=== PATIENT | male | born 1950 | race Caucasian/White ===

== ENCOUNTER 2017-04-10 07:39 | Day surgery (SDC) | payer OTHER ==
[2017-04-10 08:01] VITALS: BMI 25.7
[2017-04-10 08:11] LABS: #Basophils 0.1 thou/uL (0.0-0.2); #Eosinphils 0.1 thou/uL (0.0-0.7); #Lymphocytes 1.7 thou/uL (1.20-3.40); #Monocytes 0.6 thou/uL (0.11-0.59); #Neutrophils 8.2 thou/uL (1.40-6.50); %Basophils 0.7 % (0.0-1.0); %Eosinophils 0.7 % (0.0-10.0); %Lymphocytes 15.8 % (21.0-51.0); %Monocytes 5.8 % (0.0-10.0); Hematocrit 47.7 % (42.0-52.0); Mean Platelet Volume 6.9 fL (7.4-10.4); Red Blood Cell (RBC) Count 5.02 mill/uL (4.70-6.10); White Blood Cell (WBC) Count 10.6 thou/uL (4.8-10.8)
[2017-04-10] MEDS ORDERED: FLU VACC QS2017-18 36 mo. & older 0.5 ML SYRINGE IM ONE (09:00)
[2017-04-10] MEDS ORDERED: Sodium Bicarbonate 2.4 MEQ/5 ML ONE (09:11)
[2017-04-10 12:14] VITALS: BP 157/77; TEMP 97.7
--- NOTE | 2017-04-10 14:12 | CT ---
CT GUIDED LUMBAR ASPIRATION: History: 66-year-old male with retrothecal fluid collection within laminectomy defect at L4 and L4-5. Technique: Signed informed consent obtained. Patient was placed prone on CT table. Skin over the lower back was prepped and draped in the usual sterile fashion. 25 gauge needle was used to apply buffered Lidocai ne superficially. Utilizing CT guidance, first a 22 gauge spinal needle was incrementally advanced i nto the region of the laminectomy defect at the L4 level. With distal tip positioned very close to t he dorsal surface of the thecal sac, the stylet was removed, and aspiration was attempted. There was no return of any fluid, either blood, pus, or CSF. The patient reported mild pain, and therefore, a dditional Lidocaine was injected into the 22 gauge spinal needle while it was withdrawn through the retrospinal soft tissues. Next, an 18 gauge spinal needle was incrementally advanced at a slightly m ore inferior position at L4, with distal tip abutting the dorsal surface of the thecal sac but not p enetrating the thecal sac. After removal of stylet, aspiration with a 10 ml syringe yielded a tiny a mount of viscous, bloody, particulate material (blood clots), less than 1 ml. This was sent to [facility] for culture and sensitivity. There was no CSF return. Patient experienced bilateral lower ext remity hypesthesia, apparently due to epidural infiltration of a small amount of the Lidocaine, whic h subsequently resolved while the patient was in the post procedure holding room. Otherwise, there w as no major complication, and the patient tolerated the procedure well. IMPRESSION: Less than 1 ml of highly viscous red material (blood clots) aspirated through 18 gauge spinal needle from the tiny fluid collection at the laminectomy defect abutting the dorsal surface of the thecal sac. This was sent to laboratory for culture and sensitivity. POS: [facility]
== END 2017-04-10 11:30 | disposition home or self-care (01) ==
LOC: CT 07:39
PROVIDERS: ATTEND Neurological Surgery
PROC: 00JV3ZZ Inspection of Spinal Cord, Percutaneous Approach (ICD-10-PCS; principal; 2017-04-10)
DX: G06.1 Intraspinal abscess and granuloma (principal); Z88.6 Allergy status to analgesic agent; Z88.1 Allergy status to other antibiotic agents; Z88.8 Allergy status to other drugs, medicaments and biological substances
CPT/HCPCS: 36415; 77002; 77012; 85025; 85652; 87070; 87205; 90471; 90682; G0008; Q2036

== ENCOUNTER 2017-05-11 08:56 | Inpatient (IN) | payer OTHER ==
[2017-05-10 13:07] VITALS: BMI 26.4
--- NOTE | 2017-05-11 05:54 | HP ---
CHIEF COMPLAINT: Paresthesias in the perineum. HISTORY OF PRESENT ILLNESS: He has an MRI from [facility]. 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 He had good recovery from surger y and was doing well until about 10 days ago fell about a month ago when he started getting paresthes ias in the perineum. He has had no fever, chills, sweats, rigors. There are no radicular pains in t he leg. There is no incontinence. No weakness or loss of sensation. There is feeling in the sacral dermatomes, but also tingling. He has an MRI to review. Mr. Randolph had a previous L3-L5 laminectomy and L4-L5 TLIF in 07/2016 REVIEW OF SYSTEMS: Ten-point review of systems was negative, unless otherwise mentioned in the above HPI. PAST MEDICAL HISTORY: Spinal stenosis, varicosis veins, CAD, RCA stent, ventral hernia, right inguin al hernia, cataracts. MEDICATIONS: Tizanidine HCL, diclofenac, Nexium and loratadine. ALLERGIES: Seasonal, MOTRIN. PHYSICAL EXAMINATION: HEENT: Normocephalic, atraumatic. Hearing intact. Moist mucous membranes. Trachea is midline. No masses noted. RESPIRATIONS: The patient has bilateral symmetric chest rise. Appears to be no shortness breath. CARDIOVASCULAR: Regular rate and rhythm, normal S1, S2 heart sounds, no distal cyanosis or clubbing. PSYCHIATRIC: Normal mood and affect. NEUROLOGIC: Cranial nerves II-XII grossly intact. Speech is fluent, answers my questions appropriat samia. Gait and station are normal. Motor exam: There is normal strength in biceps, triceps, and wri st extensors, finger extensors, and interossei. Sensory exam, paresthesias in S2, S3, and S4. No fo des loss of sensation. Culture no growth at 5 days. ASSESSMENT: Low back pain, lumbar spinal stenosis, intraspinal abscess and granuloma. PLAN: Dr. Lino has offered Mr. Randolph a reopening of lumbar incision, I and D culture and possib le dural repair. We discussed the risks, benefits, and possible complications of surgery. The patie nt is fully aware of the risks and is willing to proceed with the surgery.
[2017-05-11] MEDS ORDERED: CEFAZOLIN/Water 2 GM/20 ML SYRINGE ONE (10:47)
[2017-05-11 11:05] LABS: Hematocrit 42.4 % (42.0-52.0); Red Blood Cell (RBC) Count 4.55 mill/uL (4.70-6.10); White Blood Cell (WBC) Count 6.4 thou/uL (4.8-10.8)
[2017-05-11 11:10] LABS: Prothrombin Time 13.2 SEC (12.0-14.7)
[2017-05-11 11:11] LABS: PTT 25.7 SEC (22.9-36.1)
[2017-05-11 11:16] LABS: Anion Gap 11 mmol/L (10-20); BUN (Urea Nitrogen) 13 mg/dL (8.4-25.7); Calc. Creatinine Clearance 105 mL/min (70-130); Calcium 9.4 mg/dL (7.8-10.44); Carbon Dioxide 27 mmol/L (23-31); Chloride 106 mmol/L (98-107); Estimated GFR-MDRD 88
[2017-05-11] MEDS ORDERED: Fentanyl 250 MCG/5 ML VIAL ONE (11:37)
[2017-05-11] MEDS ORDERED: Midazolam HCl 2 mg/2 ml Vial ONE (11:37)
[2017-05-11] MEDS ORDERED: Sodium Chloride 0.9% 20 ML ONE (11:41)
[2017-05-11] MEDS ORDERED: Thrombin 5000 UNITS/5 ML VIAL ONE (11:41)
[2017-05-11] MEDS ORDERED: Bupivacaine/Epinephrine 0.25% 30 ML VIAL ONE (11:41)
[2017-05-11] MEDS ORDERED: Lidocaine 1% PF 5 ML VIAL ONE (12:01)
[2017-05-11] MEDS ORDERED: ePHEDrine/0.9% NaCl/PF SYRINGE 50 mg/10 ml ONE (12:01)
[2017-05-11] MEDS ORDERED: Ondansetron HCl/PF 4 MG/2 ML Vial ONE (12:01)
[2017-05-11] MEDS ORDERED: Propofol 200 MG/20 ML VIAL ONE (12:01)
[2017-05-11] MEDS ORDERED: Dexamethasone 20 MG/5 ML VIAL ONE (12:01)
[2017-05-11] MEDS ORDERED: Fentanyl 100 MCG/2 ML VIAL ONE ×5 (13:24→17:59)
[2017-05-11] MEDS ORDERED: Meperidine HCl/PF 25 MG/ML VIAL SLOW IVP PRN (16:19)
[2017-05-11] MEDS ORDERED: Promethazine HCl 25 MG/ML VIAL SLOW IVP PRN (16:19)
[2017-05-11] MEDS ORDERED: HYDROmorphone 2 MG/ML VIAL SLOW IVP PRN (16:19)
[2017-05-11] MEDS ORDERED: Morphine Sulfate 2 MG/ML SYRINGE SLOW IVP PRN (16:19)
[2017-05-11] MEDS ORDERED: Morphine PF 1 MG/ML SYR IVP PRN (16:38)
[2017-05-11] MEDS ORDERED: Bisacodyl 10 MG SUPP PR PRN (16:38)
[2017-05-11] MEDS ORDERED: Morphine 4 MG/ML VIAL SLOW IVP PRN (16:38)
[2017-05-11] MEDS ORDERED: Acetaminophen/Codeine 30-300mg Tablet PO PRN (16:38)
[2017-05-11] MEDS ORDERED: Ondansetron HCl/PF 4 MG/2 ML Vial IVP PRN (16:38)
[2017-05-11] MEDS ORDERED: traMADol HCl 50 MG TAB PO PRN ×2 (16:38)
[2017-05-11] MEDS ORDERED: tiZANidine HCl 4 MG TAB PO PRN (16:38)
[2017-05-11] MEDS ORDERED: Docusate 100 MG CAP PO PRN (16:43)
[2017-05-11] MEDS ORDERED: Promethazine HCl 25 MG/ML VIAL ONE (16:54)
[2017-05-11] MEDS ORDERED: tiZANidine HCl 4 MG TAB ONE (17:54)
--- NOTE | 2017-05-11 18:33 | OP ---
DATE OF SURGERY: 05/11/2017 SURGEON: Carolina Lino M.D. FLANGING MACHINE OPERATOR: Pa Sal PA-C. PREOPERATIVE INDICATION: Prevent neurological deterioration. PREOPERATIVE DIAGNOSES: Prior lumbar decompression and fusion, epidural fluid collection, and sacral dermatomal paresthesias. POSTOPERATIVE DIAGNOSES: Prior lumbar decompression and fusion, epidural fluid collection, left L3 p ars fracture, erosion of dura, pseudomeningocele, and spinal instability. OPERATIVE PROCEDURE: Reopening lumbar incision, exploration of fusion, discovery of pars fracture, d iscovery of pseudomeningocele, repair of pseudomeningocele, microsurgery, extension of fusion, arthro desis L3-L4, posterolateral arthrodesis L3-L4, pedicle screw and hernesto instrumentation L3-L5. PREOPERATIVE MEDICATION: Ancef 2 grams IV. DRAIN NUMBER: Zero. DRAIN TYPE: None. OPERATIVE DICTATION: The patient was brought to the operating room. General endotracheal anesthesia was induced. The patient was positioned prone on the operating table with his chest and hips suppor lei by gel-filled chest rolls. A lateral fluoro radiograph confirmed that the previous incision woul d give us appropriate access to the lumbosacral spine fluid collection. The lumbar skin was sterilel y prepped and draped. We opened with a 10 blade knife and controlled bleeding with bipolar cautery. We used monopolar cautery to dissect through scar tissue to the thoracodorsal fascia. We incised th e fascia in the midline and reflected the paraspinal muscles off the spinous process of L2 above and L5 below. We reflected the paraspinal muscles out of the surgical cord or over to the facet joints a t L3-L4 and L4-L5 and placed self-retaining retractors. We identified the pedicle screw and hernesto comp vamsi at the L3-4, L4-5 facet joints. In the L3-4 facet joint on the right side, there was CSF egress. Scar tissue was left on the back of the dura until we brought the operating microscope into the [facility]. Under microscopic magnification using microsurgical techniques, we carefully peeled the scar tissue a way from the lateral confines of the spinal canal. We removed the remainder of the L3 lamina and we discovered a pars fracture on the left at L3. This was not predicted. The distal part of the facet complex below the pars fracture had moved medially and was surrounded by granulation tissue and stuck to the dura, any manipulation of that bony material resulted in CSF egress. We carefully and circum ferentially dissected dura around the lateral aspect of the previous decompression all the way down t o L5 and back up under the broken facet joint on the left side. Finally, we removed a fragment of rosamaria ne and there was a small ulceration in the dura through which nerve roots were visible and there was CSF egress. Two separate cstuwy-ud-zmklj sutures were placed with 6-0 Prolene under the operating mi croscope. This occluded the opening and a Valsalva maneuver did not produce any CSF flow. We turned our attention to fixation of the fracture. Indeed, there was a very easy lateral translation of L3 relative to L4. There was a very easy posterior translation of L3-L4. We felt that the pars fractur e was unstable and likely to lead to future neurological decline. We elected to fix it. We carefull y dissected in the lateral recess to identify the intervertebral space at L3-L4 for the potential tra nsforaminal interbody device because of the inflammation produced by the CSF egress from the previous surgery. Dura and scar tissue were densely adherent and there was no mobilizing thecal sac medially . We elected to place pedicle screws at L3 and not place an interbody device. The operating microsc ope was taken out of the field. Using bony anatomic landmarks, palpation of the medial portion of the pedicles and lateral fluoro rad iograph as a guide, we chose entry points for pedicle screws at L3. We advanced our entry point thro ugh the pedicles into the vertebral bodies with the bone awl. We tapped the trajectories and probed them and found them completely encased in bone. We placed 6.5 x 55 mm screws bilaterally at L3. AP and lateral fluoro radiographs confirmed the adequate position of the new instrumentation. We then t urned our attention to the removal of the prior rods. Using a xazigz-hwgzizf-quzgqe mechanism, we op ened caps at L4 and L5 removed rods bilaterally. We brought new rods into the field and bent them to encompass the new pedicle screw heads. We placed rods in position and tightened new caps over the r ods. Using djpvas-fznpfjt-weyuhe mechanism, we ensured adequate tightness. We irrigated copiously w ith bacitracin irrigation. We then decorticated the transverse processes of L3 and L4 and the fusion mass bilaterally. We left demineralized bone matrix and morselized autograft in the posterolateral recesses as our fusion substrate. The morselized autograft was obtained from our new laminectomy bon e and facetectomy bone that was carefully cleaned of its soft tissue attachments, morselized, then ad ded to the demineralized bone matrix as our fusion substrate. We irrigated the center of the wound o nce again with bacitracin irrigation. We applied a Valsalva maneuver and still saw no CSF egress fro m our dural repair. We reinforced our repair with DuraSeal tissue sealant. We placed vancomycin pow yasmine in the wound and we closed the wound in anatomic layers. We applied a sterile dressing. This wa s a clean case and no contamination.
[2017-05-11] MEDS: Sodium Chloride 0.9% 1,000 ML IV SCH ×2 (19:20→22:40)
[2017-05-11] MEDS: CEFAZOLIN/Water 2 GM/20 ML SYRINGE SLOW IVP SCH (19:20)
[2017-05-11] MEDS ORDERED: tiZANidine HCl 4 MG TAB PO SCH (21:00)
[2017-05-12] MEDS: Acetaminophen/Codeine 30-300mg Tablet PO PRN ×3 (01:01→08:21)
[2017-05-12] MEDS: CEFAZOLIN/Water 2 GM/20 ML SYRINGE SLOW IVP SCH (03:58)
[2017-05-12 08:51] VITALS: BP 109/62; TEMP 98.2
[2017-05-12] MEDS ORDERED: Loratadine 10 MG TAB PO SCH (09:00)
--- NOTE | 2017-05-12 10:04 | EKG ---
Test Reason : PREOP Blood Pressure : / mmHG Vent. Rate : 064 BPM Atrial Rate : 064 BPM P-R Int : 162 ms QRS Dur : 088 ms QT Int : 404 ms P-R-T Axes : 068 029 052 degrees QTc Int : 416 ms Normal sinus rhythm Normal ECG When compared with ECG of 24-JUL-2016 06:33, No significant change was found Confirmed by EDGARDO BANDA, SBrian ([id number]) on 05/12/2017 10:03:37 AM Referred By: ESTHER Confirmed By:DR. J Luis REYNOSO MD
== END 2017-05-12 11:05 | disposition home or self-care (01) | DRG 29 ==
LOC: SURG A 09:53
PROVIDERS: ADMIT Neurological Surgery; ATTEND Neurological Surgery
PROC: 0SG00AJ Fusion of Lumbar Vertebral Joint with Interbody Fusion Device, Posterior Approach, Anterior Column, Open Approach (ICD-10-PCS; principal; 2017-05-11)
PROC: 00QT0ZZ Repair Spinal Meninges, Open Approach (ICD-10-PCS; 2017-05-11)
DX: G06.1 Intraspinal abscess and granuloma (principal); S32.039A Unspecified fracture of third lumbar vertebra, initial encounter for closed fracture; G96.19 Other disorders of meninges, not elsewhere classified; I25.10 Atherosclerotic heart disease of native coronary artery without angina pectoris; M48.061 Spinal stenosis, lumbar region without neurogenic claudication; Z95.5 Presence of coronary angioplasty implant and graft; Z98.1 Arthrodesis status; W19.XXXA Unspecified fall, initial encounter
CPT/HCPCS: 76001; 80048; 85027; 85610; 85730; 87070; 87077; 87102; 87205; 87206; 93005; 93010; A4216; C1713; C1768; G8978-GP-CI; G8979-GP-CH; J1100; J2001; J2250; J2274; J2405; J2550; J2704; J3010; J3370; J3490

== ENCOUNTER 2017-06-26 11:29 | Outpatient (CLI) | payer OTHER | END 2017-06-26 11:30 | disposition home or self-care (01) | LOC: BICRAD 11:29 | PROVIDERS: ATTEND Neurological Surgery | DX: M54.5 Low back pain (principal); M41.86 Other forms of scoliosis, lumbar region; Z98.890 Other specified postprocedural states | CPT/HCPCS: 72100 ==

== ENCOUNTER 2019-02-20 05:57 | Day surgery (SDC) | payer MEDICARE, OTHER ==
--- NOTE | 2019-02-19 18:55 | HP ---
HISTORY OF PRESENT ILLNESS: Mr. Randolph is a 68-year-old male. He is back in the clinic. Two and a half years ago, he had a decompression with fusion L3 through L5. In April of 2017, we took him back 8 months later for a dural repair, requiring a patch. 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 Over the last 3 months, he has noticed right greater than left L3 radicular pain. This prevents him from helping his with work around the home. He has gone back to doing his exercises, taking anti-inflammatories and modified his work load. He has had no relief. PAST MEDICAL HISTORY: Spinal stenosis, varicose veins, CAD with RCA stent, ventral hernia, right inguinal hernia, cataracts. ALLERGIES: SEASONAL, AND MOTRIN. MEDICATIONS: Tizanidine, diclofenac, Nexium, loratadine. PAST SURGICAL HISTORY: Right inguinal hernia repair, ventral hernia repair, CAD with RCA stent, cataracts, lumbar laminectomy and fusion, lumbar washout, dural repair. FAMILY HISTORY: Father is . Mother is . SOCIAL HISTORY: The patient is a former smoker. PHYSICAL EXAMINATION: CONSTITUTIONAL: Alert, oriented. NEUROLOGIC: Gait and station, leans a bit. Motor exam, mild weakness in the right greater the left iliopsoas. Normal quad strength distally. Sensory exam, some l3 affected, right greater than left. RESPIRATION: Normal work of breathing on room air. Symmetric chest rise. IMAGING: MRI, herniated nucleus pulposus post fusion at L2-L3, both lateral recesses are affected. Stenosis is severe. The right L3 foramen looks tight as well. ASSESSMENT AND PLAN: Lumbar spinal stenosis with radiculopathy. Dr. Lino has offered surgery. The patient states he understands the risks of surgery and is willing to proceed. Job ID: [id number]
[2019-02-20 06:29] LABS: #Basophils 0.1 thou/uL (0.0-0.2); #Eosinphils 0.8 thou/uL (0.0-0.7); #Lymphocytes 2.5 thou/uL (1.20-3.40); #Monocytes 0.8 thou/uL (0.11-0.59); #Neutrophils 3.1 thou/uL (1.40-6.50); %Basophils 1.2 % (0.0-1.0); %Eosinophils 11.5 % (0.0-10.0); %Lymphocytes 34.1 % (21.0-51.0); %Monocytes 11.1 % (0.0-10.0); %Neutrophils 42.1 % (42.0-75.0); Hemoglobin 13.8 g/dL (14.0-18.0); Mean Corpuscular HGB CONC 34.2 g/dL (32.0-36.0); Mean Corpuscular Hemoglobin 30.8 pg (27.0-31.0); Mean Corpuscular Volume 90.2 fL (78.0-98.0); Mean Platelet Volume 6.9 fL (7.4-10.4); Platelet Count 306 thou/uL (130-400); RBC Distribution Width 12.2 % (11.5-14.5); Red Blood Cell (RBC) Count 4.48 mill/uL (4.70-6.10); White Blood Cell (WBC) Count 7.4 thou/uL (4.8-10.8)
[2019-02-20 06:36] LABS: INR-International Normal Ratio 0.9; PTT 26.1 SEC (22.9-36.1); Prothrombin Time 12.1 SEC (12.0-14.7)
[2019-02-20] MEDS ORDERED: Bupivacaine HCl 0.5%/Epinephrine 1:200,000/PF 30 ml Vial ONE (06:39)
[2019-02-20] MEDS ORDERED: Sodium Chloride 0.9% 20 ML ONE (06:39)
[2019-02-20] MEDS ORDERED: Thrombin 5000 UNITS/5 ML VIAL ONE (06:39)
[2019-02-20] MEDS ORDERED: Fentanyl 100 MCG/2 ML VIAL ONE ×2 (06:41→11:19)
[2019-02-20 06:48] LABS: Anion Gap 13 mmol/L (10-20); BUN (Urea Nitrogen) 13 mg/dL (8.4-25.7); Calc. Creatinine Clearance 79 mL/min (70-130); Calcium 10.1 mg/dL (7.8-10.44); Carbon Dioxide 28 mmol/L (23-31); Chloride 104 mmol/L (98-107); Estimated GFR-MDRD 70; Glucose 104 mg/dL (80-115); Potassium 4.4 mmol/L (3.5-5.1); Sodium 141 mmol/L (136-145)
[2019-02-20] MEDS ORDERED: Midazolam HCl 2 mg/2 ml Vial ONE (08:10)
[2019-02-20] MEDS ORDERED: HYDROmorphone 0.5 MG/0.5 ML SYRINGE ONE (09:45)
--- NOTE | 2019-02-20 11:40 | OP ---
DATE OF PROCEDURE: 02/20/2019 SCREEN TENDER HELPER: Radha López PA-C. PREOPERATIVE INDICATION: Treat pain and prevent neurological deterioration. 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 OPERATIVE PROCEDURES: 1. Reopening of lumbar incision. 2. Dissection of scar tissue. 3. L2-L3 laminectomy, medial facetectomy, foraminotomy. 4. Bilateral microdiskectomy. 5. Operating microscope. PREOPERATIVE MEDICATION: Ancef 2 g IV. DRAIN NUMBERS: Zero. DRAIN TYPE: None. DESCRIPTION OF PROCEDURE: The patient was brought to the operating room. General endotracheal anesthesia was induced. The patient was positioned prone on the operating table. His chest and hips supported by gel-filled chest rolls. A lateral fluoro radiograph was used to plan our incision. The lumbar skin was sterilely prepped and draped. We reopened his midline incision, the top half of it, and dissected through scar tissue. We controlled bleeding with bipolar cautery. We used monopolar cautery to dissect through our scar tissue to the thoracodorsal fascia. We incised the fascia in the midline and reflected the paraspinal muscles off the spinous process and lamina of L2 and the facet joints at L2-L3 as well as the inferior portion of L1. A self-retaining retractor was placed and a lateral fluoro radiograph was used to confirm the levels upon which we were operating. We then used Adson rongeur to remove the L2 spinous process. A high-speed drill was brought into the field. Using a oziel bur, we thinned the lamina of L2. Using a 2-mm Kerrison rongeur, we the scar tissue from the undersurface of the lamina and performed the laminectomy. We widened our laminectomy defect until we were in line with the medial border of the pedicles at L2. The operative microscope was brought into the field. Under microscopic magnification using microsurgical techniques, we carefully dissected through scar tissue, freeing the common thecal sac and the L2 and L3 nerve roots from surrounding scar. This was tedious and required meticulous microdissection. Finally, we can mobilize the nerve roots medially and under the ventral aspect of the common thecal sac and each of the L3 nerve roots. There was significant amount of loose disk material, which was removed in piecemeal fashion. We reached into the interspace from both sides and removed loose fragments of disk from the interspace. The remainder of the disk was firmly adherent to the endplates. We carefully performed foraminotomies around the L2 and the L3 nerve roots until a Lorenzana ball probe could pass through the lateral recess out the foramen with each of the 4 nerve roots without any compression whatsoever. We irrigated with bacitracin irrigation. We infused local anesthetic in the paraspinal muscles. We treated the wound with vancomycin powder and we closed in anatomical layers. This was a clean case, no contamination. Job ID: [id number]
[2019-02-20] MEDS ORDERED: Rocuronium Bromide 10 MG/ML (10ML VIAL) ONE (11:58)
[2019-02-20] MEDS ORDERED: PROPOFOL 200 MG/20 ML VIAL ONE (11:58)
[2019-02-20] MEDS ORDERED: Lidocaine 2% PF 5 ML VIAL ONE (11:58)
[2019-02-20] MEDS ORDERED: Ondansetron PF 4 MG/2 ML Vial ONE (11:58)
[2019-02-20] MEDS ORDERED: Dexamethasone 20 MG/5 ML VIAL ONE (11:58)
[2019-02-20] MEDS ORDERED: Glycopyrrolate 0.2 MG/ML 5 ML SYRINGE ONE (11:58)
[2019-02-20] MEDS ORDERED: ePHEDrine 50 MG/ML VIAL ONE (11:58)
[2019-02-20] MEDS ORDERED: diphenhydrAMINE 50 MG/ML VIAL ONE (11:58)
[2019-02-20] MEDS ORDERED: Acetaminophen/Codeine 30-300mg Tablet ONE (14:07)
[2019-02-20] MEDS ORDERED: tiZANidine HCl 4 MG TAB ONE (14:08)
== END 2019-02-20 15:30 | disposition home or self-care (01) ==
LOC: SDC 05:57
PROVIDERS: ATTEND Neurological Surgery
PROC: 0ST20ZZ Resection of Lumbar Vertebral Disc, Open Approach (ICD-10-PCS; principal; 2019-02-20)
PROC: 01NB0ZZ Release Lumbar Nerve, Open Approach (ICD-10-PCS; 2019-02-20)
DX: M51.16 Intervertebral disc disorders with radiculopathy, lumbar region (principal); M48.061 Spinal stenosis, lumbar region without neurogenic claudication; I25.10 Atherosclerotic heart disease of native coronary artery without angina pectoris; Z87.891 Personal history of nicotine dependence; Z79.1 Long term (current) use of non-steroidal anti-inflammatories (NSAID); Z79.899 Other long term (current) drug therapy; Z88.0 Allergy status to penicillin; Z88.8 Allergy status to other drugs, medicaments and biological substances; Z98.1 Arthrodesis status; Z95.5 Presence of coronary angioplasty implant and graft; Z98.890 Other specified postprocedural states
CPT/HCPCS: 36415; 76000; 80048; 85025; 85610; 85730; 93005; 93010; J0131; J0670; J0690; J1100; J1170; J1200; J2001; J2250; J2405; J2704; J3010; J3370; J3490